=== PATIENT | female | born 1990 | race Caucasian/White ===

== ENCOUNTER 2021-09-29 11:24 | Emergency (ER) | payer OTHER, SELFPAY ==
[2021-09-29 12:13] VITALS: BP 128/72; PULSE 86; RESP 18; TEMP 36.7; O2SAT 100; BMI 22.1
--- NOTE | 2021-09-29 16:03 | ED_ITS ---
HPI - Extremity Problem General Chief complaint: Extremity Injury, Upper Stated complaint: r index finger laceration Time Seen by Provider: 09/29/21 15:45 Source: patient Mode of arrival: ambulatory Limitations: no limitations History of Present Illness HPI Narrative: 31 y/o female presents to the ER for evaluation of a laceration to her right index finger she sustained on a sharp knife yesterday evening around 7pm. She went to both [facility] and [facility] but ended up leaving before being seen. She reached into a bag and cut herself on her brothers sharp knife. She had immediate pain and bleeding. She reports improvement in the bleeding. Limited range of motion of the finger because she if she bends the finger she has a for the open wound is going to open again. Unknown when last tetanus shot. Complaint: other (right index finger laceration) Onset (ago): day(s) (1) Pain Consistency: constant Location: right Severity scale (1-10): 5 Quality: aching Radiation: none Relieving factors: rest Exacerbating factors: range of motion and palpation Associated symptoms: denies other symptoms Related Data Allergies Allergy/AdvReac Type Severity Reaction Status Date / Time Penicillins [PCN] Allergy Hives Verified 09/29/21 12:20 Review of Systems Review of Systems: Constitutional: No Fever, No Chills Cardiovascular: No Chest Pain, No SOB Respiratory: No Cough, No Sputum Gastrointestinal: No Nausea, No Vomiting Musculoskeletal: +joint pain, No Myalgias Skin: + Skin Lesions, No rash Neuro: No Weakness, No Numbness Psych: + Anxiety/Panic, No Depression Heme/Lymph: No Bruising, No Lymphadenopathy PMFSH Social History Social History Advance Directives: No Advance Directives Information Provided: No Physical Exam Vital Signs: Vital Signs: Last Vital Signs Temp 98.0 F 09/29/21 12:13 Pulse 86 09/29/21 12:13 Resp 18 09/29/21 12:13 BP 128/72 09/29/21 12:13 Pulse Ox 100 09/29/21 12:13 BMI result Body Mass Index 22.1 Appearance: Alert. Oriented X3. No acute distress. HEENT: normal inspection CVS: Normal heart rate and rhythm. Pulses normal. Respiratory: No respiratory distress. Skin: Skin warm and dry. Normal skin color. Normal skin turgor. No rashes. Extremities: Right dorsal index finger with a 2 cm superficial linear laceration over the PIP joint. No active bleeding. No surrounding erythema. Neurovascularly intact distally. Normal range of motion of the digit. No sensory loss. Neuro: Oriented X 3. Grossly normal, nonfocal Course Course Course Narrative: [age] no female presents to the ER for a superficial laceration to her right index finger, sustained yesterday evening. No active bleeding. Wound margins are well approximated. She has normal range of motion of the finger although is reluctant to fully bend given she has 1 the wound to open back up. She needs a tetanus shot. Wound was closed with Dermabond and Steri-Strips. Tolerated well. Stable for discharge home. Procedures Laceration Laceration 1: Site: hand Side (If applicable): right Size (cm): 2 Description: linear Depth: simple, single layer Pre-repair: irrigated extensively and deep structures intact Skin layer closed with: other (dermabond) Discharge Plan Discharge Clinical Impression: Finger laceration Patient Disposition: Home, Self-Care Instructions: Finger Laceration (ED) Additional Instructions: Do not get your finger wet for 1 week. Keep wound clean and covered. Do not submerge in water, no swimming, no dishes. If you develop signs of infection including increased pain, swelling, redness or drainage of pus come back to the ER for further evaluation. Interventions: ED Discharge Assessment Last Done: 09/29/21 16:42 Discharge Date/Time: 09/29/21 16:45
[2021-09-29] MEDS: Diphth,Pertus(ACell),Tet Adult 0.5 ML SYRINGE IM (16:23)
== END 2021-09-29 16:45 | disposition home or self-care (01) ==
PROVIDERS: Emergency Provider Internal Medicine
DX: S61.210A Laceration without foreign body of right index finger without damage to nail, initial encounter (principal); W26.0XXA Contact with knife, initial encounter; Y93.9 Activity, unspecified; Y92.9 Unspecified place or not applicable; Y99.9 Unspecified external cause status
CPT/HCPCS: 12001; 90471; 90715; 99284